=== PATIENT | male | born 1995 | race African-American/Black ===

== ENCOUNTER 2018-09-25 21:51 | Emergency (ER) | payer MEDICAID ==
[~2018-09-25] VITALS: Ht 165.1 cm; Wt 73.0 kg
[2018-09-26] MEDS ORDERED: IBUPROFEN 600MG TABLET PO ONE (00:15)
[2018-09-26 00:46] VITALS: BP 116/61
== END 2018-09-26 00:50 | disposition home or self-care (01) ==
LOC: ER 21:51
DX: R51 Headache (principal); M54.9 Dorsalgia, unspecified; F17.200 Nicotine dependence, unspecified, uncomplicated; V49.59XA Passenger injured in collision with other motor vehicles in traffic accident, initial encounter; Y93.89 Activity, other specified; Y92.89 Other specified places as the place of occurrence of the external cause; Y99.8 Other external cause status
CPT/HCPCS: 99282

== ENCOUNTER 2019-11-29 23:04 | Emergency (ER) | payer MEDICAID ==
[~2019-11-29] VITALS: Ht 165.1 cm; Wt 73.0 kg
[2019-11-30] VITALS: BP 124/71
== END 2019-11-30 00:01 | disposition home or self-care (01) ==
LOC: ER 23:04
DX: R04.0 Epistaxis (principal); J45.998 Other asthma; J31.0 Chronic rhinitis
CPT/HCPCS: 99283